=== PATIENT | female | born 1990 | race Caucasian/White ===

== ENCOUNTER 2021-04-12 15:30 | Inpatient (IN) ==
[2021-04-12 17:21] LABS: Basophils # 0.1 10*3/uL (0.0-0.2); Basophils % 0.2 % (0.0-0.8); Eosinophils # 0.1 10*3/uL (0.0-0.87); Eosinophils % 0.2 % (0.00-10.9); Hematocrit 36.3 VOL% (35.7-47.0); Immature Granulocytes % 2.4 %; Immature Granulocytes Absolute 0.72 #; Lymphocytes % 3.4 % (21.3-54.2); Mean Corpuscular HGB Conc 33.1 GM/DL (32-36); Mean Corpuscular Volume 87.7 FL (87-102); Mean Platelet Volume 9.7 FL (9.6-12.0); Monocytes % 4.6 % (1.7-12.7); Neutrophils % 89.2 % (38.7-73.9); Platelet Count 574 T/CUMM (130-400); Red Blood Count 4.14 MC/CUMM (3.8-5.5); Red Cell Distribution Width 13.9 % (9.3-17.3); White Blood Count 30.4 T/CUMM (4-12)
[2021-04-12 18:00] LABS: Alanine Aminotransferase 41 U/L (13-56); Albumin 2.9 G/DL (3.4-5.0); Alkaline Phosphatase 88 U/L (45-117); Aspartate Amino Transferase 38 U/L (0-37); Bilirubin,Total < 0.39 MG/DL (0.20-1.00); Blood Urea Nitrogen 50 MG/DL (7-18); Calcium 9.5 MG/DL (8.5-10.1); Carbon Dioxide 27 MMOL/L (21-32); Estimated Glom Filtration Rate 24 ML/MIN; Glucose 121 MG/DL (74-106); Osmolality,Calculated 279.4 MOS/KG (273-304); Sodium 133 MMOL/L (136-145); Total Protein 9.4 G/DL (6.4-8.2)
[2021-04-12] MEDS ORDERED: SODIUM CHLORIDE 0.9% 1,000 ML IV STA (18:19)
[2021-04-12] MEDS ORDERED: ERTAPENEM 1,000 MG in SODIUM CHLORIDE 0.9% 100 ML IV ONE (18:20)
[2021-04-12 18:44] LABS: Lymphocytes 2 % (20-55); Segmented Neutrophils 94 % (50-85); Total Cells Counted 100
[2021-04-12 18:45] LABS: Platelet Estimate Increased; Spherocytes 1+
[2021-04-12] MEDS ORDERED: GLUCAGON 1 MG VIAL IM PRN (20:53)
[2021-04-12] MEDS ORDERED: DEXTROSE 50% 25 GM/50 ML VIAL IV PRN (20:53)
[2021-04-12] MEDS ORDERED: MORPHINE 2 MG/1 ML SYRINGE IV PRN (20:55)
[2021-04-12] MEDS ORDERED: MAGNESIUM SULF RIDER 4 GM/100 ML PREMIX IV PRN (20:55)
[2021-04-12] MEDS ORDERED: POTASSIUM CHLORIDE RIDER 10 MEQ/100 ML PREMIX IV PRN (20:55)
[2021-04-12] MEDS ORDERED: MAGNESIUM SULF RIDER 2 GM/50 ML PREMIX IV PRN (20:55)
[2021-04-12] MEDS ORDERED: methylPREDNISolone SOD SUC 40 MG/1 ML VIAL IV SCH (21:30)
[2021-04-12] MEDS: SODIUM CHLORIDE 0.9% 1,000 ML IV SCH (22:52)
[2021-04-12] MEDS: guaiFENesin/DM ER 600-30 MG TABLET PO SCH (23:20)
[2021-04-12] MEDS: ENOXAPARIN 30 MG/0.3 ML SYRINGE SUBCUT SCH (23:20)
[2021-04-12] MEDS: ONDANSETRON 4 MG/2 ML VIAL IV PRN (23:24)
[2021-04-12] MEDS: CEFEPIME 1,000 MG in SODIUM CHLORIDE 0.9% 100 ML IV SCH (23:32)
[2021-04-13] MEDS ORDERED: VANCOMYCIN INJ 1,500 MG in SODIUM CHLORIDE 0.9% 500 ML IV PRN (00:18)
[2021-04-13] MEDS: ALBUTEROL/IPRATROPIUM 3 ML NEB RESP TX SCH ×4 (00:22→20:46)
[2021-04-13] MEDS ORDERED: VANCOMYCIN INJ 2,500 MG in SODIUM CHLORIDE 0.9% 500 ML IV ONE (00:30)
[2021-04-13] MEDS ORDERED: VANCOMYCIN INJ 500 MG in SODIUM CHLORIDE 0.9% 100 ML IV SCH (00:30)
[2021-04-13] MEDS: HYDROmorphone 2 MG/1 ML VIAL IV PRN ×3 (01:26→10:54)
[2021-04-13 04:23] LABS: Bacteria,Urine Occasional /HPF (Few); Bilirubin,Urine Negative (Negative); Blood, Urine Negative (Negative); Glucose,Urine (UA) Negative (Negative); Ketones,Urine 5 mg/dL (Negative); Mucus,Urine Occasional /LPF (Occasional); Nitrite,Urine Negative (Negative); Protein,Urine Negative; RBC,Urine 1 /HPF (0-4); Squamous Epithelial Cell,Urine Occasional /HPF (0-10); Urine Appearance CLEAR (Clear); Urine Color Straw (Yellow); Urine Specific Gravity 1.009 (1.001-1.035); Urine Urobilinogen < 2.0 EU/DL (0.2-1.0)
[2021-04-13 04:25] LABS: Basophils % 0.2 % (0.0-0.8); Hematocrit 34.7 VOL% (35.7-47.0); Hemoglobin 11.5 GM/DL (12.0-16.0); Immature Granulocytes % 1.9 %; Immature Granulocytes Absolute 0.42 #; Lymphocytes # 0.9 10*3/uL (1.4-4.0); Lymphocytes % 3.9 % (21.3-54.2); Mean Corpuscular HGB Conc 33.1 GM/DL (32-36); Mean Corpuscular Volume 88.1 FL (87-102); Monocytes % 3.9 % (1.7-12.7); Neutrophils % 90.1 % (38.7-73.9); Platelet Count 502 T/CUMM (130-400); Red Blood Count 3.94 MC/CUMM (3.8-5.5); Red Cell Distribution Width 13.9 % (9.3-17.3); White Blood Count 21.7 T/CUMM (4-12)
[2021-04-13 04:51] LABS: Osmolality,Calculated 279.2 MOS/KG (273-304); Potassium 3.5 MMOL/L (3.5-5.1); Thyroid Stimulating Hormone 0.396 uIU/ml (0.358-3.74)
[2021-04-13 05:19] LABS: Band Neutrophils 1 % (0-10); Lymphocytes 5 % (20-55); Platelet Estimate Increased; Segmented Neutrophils 88 % (50-85); Total Cells Counted 100
[2021-04-13] MEDS ORDERED: diphenhydrAMINE CAP 25 MG CAPSULE PO PRN (06:52)
[2021-04-13] MEDS: SODIUM CHLORIDE 0.9% 1,000 ML IV SCH ×4 (07:15→22:00)
[2021-04-13] MEDS: PANTOPRAZOLE 40 MG TABLET PO SCH (09:23)
[2021-04-13] MEDS: guaiFENesin/DM ER 600-30 MG TABLET PO SCH ×2 (09:23→20:22)
[2021-04-13] MEDS: CEFEPIME 1,000 MG in SODIUM CHLORIDE 0.9% 100 ML IV SCH ×2 (11:40→22:34)
[2021-04-13] MEDS: ONDANSETRON 4 MG/2 ML VIAL IV PRN ×2 (12:50→19:47)
[2021-04-13] MEDS ORDERED: PROMETHAZINE 25 MG/1 ML VIAL IM ONE (13:52)
[2021-04-13] MEDS ORDERED: SODIUM CHLORIDE 0.9% 1,000 ML IV ONE (13:52)
[2021-04-13] MEDS ORDERED: PHENOL 1.4% THROAT SPRAY 177 ML BOTTLE PO PRN (17:41)
[2021-04-13] MEDS ORDERED: PROMETHAZINE 25 MG/1 ML VIAL IM PRN (17:42)
[2021-04-13] MEDS ORDERED: LORazepam 2 MG/1 ML VIAL IV PRN (17:42)
[2021-04-13] MEDS ORDERED: BENZOCAINE/MENTHOL LOZENGE 18/BOX PO PRN (17:43)
[2021-04-13] MEDS ORDERED: HydrOXYzine PAMOATE 25 MG CAPSULE PO PRN (17:44)
[2021-04-13] MEDS ORDERED: BENZONATATE 100 MG CAPSULE PO SCH ×2 (18:00→21:00)
[2021-04-13] MEDS: ENOXAPARIN 30 MG/0.3 ML SYRINGE SUBCUT SCH (20:22)
[2021-04-13] MEDS ORDERED: ACETAMINOPHEN 325 MG TABLET PO PRN (22:11)
[2021-04-13] MEDS ORDERED: ALBUTEROL 2.5 MG/3 ML NEB RESP TX PRN (22:21)
[2021-04-13] MEDS: METOPROLOL SUCCINATE XL 25 MG TABLET PO SCH (22:29)
[2021-04-13] MEDS: DULoxetine 30 MG CAPSULE PO SCH (22:29)
[2021-04-13] MEDS: BENZONATATE 100 MG CAPSULE PO SCH (22:29)
[2021-04-14] MEDS: HYDROmorphone 2 MG/1 ML VIAL IV PRN ×2 (00:03→05:51)
[2021-04-14] MEDS: ALBUTEROL/IPRATROPIUM 3 ML NEB RESP TX SCH ×4 (01:38→20:22)
[2021-04-14] MEDS: ONDANSETRON 4 MG/2 ML VIAL IV PRN (04:15)
[2021-04-14] MEDS: VANCOMYCIN INJ 1,500 MG in SODIUM CHLORIDE 0.9% 500 ML IV SCH ×2 (05:32→23:19)
[2021-04-14 08:04] LABS: Basophils % 0.2 % (0.0-0.8); Eosinophils % 0.2 % (0.00-10.9); Hematocrit 33.7 VOL% (35.7-47.0); Hemoglobin 10.7 GM/DL (12.0-16.0); Immature Granulocytes % 2.1 %; Immature Granulocytes Absolute 0.35 #; Lymphocytes # 1.8 10*3/uL (1.4-4.0); Lymphocytes % 10.9 % (21.3-54.2); Mean Corpuscular HGB Conc 31.8 GM/DL (32-36); Mean Corpuscular Volume 89.4 FL (87-102); Mean Platelet Volume 9.6 FL (9.6-12.0); Monocytes % 7.7 % (1.7-12.7); Neutrophils % 78.9 % (38.7-73.9); Platelet Count 483 T/CUMM (130-400); Red Blood Count 3.77 MC/CUMM (3.8-5.5); Red Cell Distribution Width 14.1 % (9.3-17.3); White Blood Count 16.6 T/CUMM (4-12)
[2021-04-14 08:30] LABS: Osmolality,Calculated 274.7 MOS/KG (273-304)
[2021-04-14] MEDS: LOSARTAN/HCTZ 50-12.5 MG TABLET PO SCH (08:46)
[2021-04-14] MEDS: BENZONATATE 100 MG CAPSULE PO SCH ×3 (08:46→20:24)
[2021-04-14] MEDS: PANTOPRAZOLE 40 MG TABLET PO SCH (08:47)
[2021-04-14] MEDS: guaiFENesin/DM ER 600-30 MG TABLET PO SCH ×2 (08:47→20:24)
[2021-04-14] MEDS: SODIUM CHLORIDE 0.9% 1,000 ML IV SCH ×2 (09:15→14:05)
[2021-04-14] MEDS: CEFEPIME 1,000 MG in SODIUM CHLORIDE 0.9% 100 ML IV SCH ×2 (11:54→22:08)
[2021-04-14] MEDS: ENOXAPARIN 30 MG/0.3 ML SYRINGE SUBCUT SCH (20:23)
[2021-04-14] MEDS: DULoxetine 30 MG CAPSULE PO SCH (20:24)
[2021-04-14] MEDS: METOPROLOL SUCCINATE XL 25 MG TABLET PO SCH (20:24)
[2021-04-15] MEDS: ALBUTEROL/IPRATROPIUM 3 ML NEB RESP TX SCH ×4 (01:13→18:53)
[2021-04-15] MEDS: HYDROmorphone 2 MG/1 ML VIAL IV PRN ×5 (01:50→21:51)
[2021-04-15] MEDS: SODIUM CHLORIDE 0.9% 1,000 ML IV SCH ×3 (03:20→14:20)
[2021-04-15 05:08] LABS: Basophils # 0.1 10*3/uL (0.0-0.2); Basophils % 0.6 % (0.0-0.8); Eosinophils # 0.2 10*3/uL (0.0-0.87); Eosinophils % 2.2 % (0.00-10.9); Hematocrit 33.8 VOL% (35.7-47.0); Hemoglobin 10.8 GM/DL (12.0-16.0); Immature Granulocytes % 3.7 %; Immature Granulocytes Absolute 0.39 #; Lymphocytes # 1.5 10*3/uL (1.4-4.0); Lymphocytes % 14.5 % (21.3-54.2); Mean Corpuscular Volume 89.9 FL (87-102); Mean Platelet Volume 9.2 FL (9.6-12.0); Monocytes % 8.1 % (1.7-12.7); Neutrophils % 70.9 % (38.7-73.9); Platelet Count 404 T/CUMM (130-400); Red Blood Count 3.76 MC/CUMM (3.8-5.5); Red Cell Distribution Width 14.1 % (9.3-17.3); White Blood Count 10.6 T/CUMM (4-12)
[2021-04-15 05:40] LABS: Calcium 8.9 MG/DL (8.5-10.1); Osmolality,Calculated 274.5 MOS/KG (273-304); Potassium 3.1 MMOL/L (3.5-5.1)
[2021-04-15] MEDS: LOSARTAN/HCTZ 50-12.5 MG TABLET PO SCH (09:06)
[2021-04-15] MEDS: BENZONATATE 100 MG CAPSULE PO SCH ×3 (09:07→21:42)
[2021-04-15] MEDS: POTASSIUM CHLORIDE 20 MEQ TABLET PO SCH (09:07)
[2021-04-15] MEDS: guaiFENesin/DM ER 600-30 MG TABLET PO SCH ×2 (09:07→21:41)
[2021-04-15] MEDS: PANTOPRAZOLE 40 MG TABLET PO SCH (09:07)
[2021-04-15] MEDS: CEFEPIME 1,000 MG in SODIUM CHLORIDE 0.9% 100 ML IV SCH (10:37)
[2021-04-15] MEDS: valACYclovir 500 MG TABLET PO SCH ×2 (10:54→21:41)
[2021-04-15] MEDS: VANCOMYCIN INJ 1,500 MG in SODIUM CHLORIDE 0.9% 500 ML IV SCH (16:57)
[2021-04-15] MEDS: ENOXAPARIN 30 MG/0.3 ML SYRINGE SUBCUT SCH (21:41)
[2021-04-15] MEDS: DULoxetine 30 MG CAPSULE PO SCH (21:41)
[2021-04-15] MEDS: METOPROLOL SUCCINATE XL 25 MG TABLET PO SCH (21:41)
[2021-04-16] MEDS: CEFEPIME 1,000 MG in SODIUM CHLORIDE 0.9% 100 ML IV SCH ×4 (00:02→21:12)
[2021-04-16] MEDS: SODIUM CHLORIDE 0.9% 1,000 ML IV SCH ×4 (00:02→23:44)
[2021-04-16] MEDS: ALBUTEROL/IPRATROPIUM 3 ML NEB RESP TX SCH ×4 (01:35→19:37)
[2021-04-16] MEDS: VANCOMYCIN INJ 1,500 MG in SODIUM CHLORIDE 0.9% 500 ML IV SCH ×2 (04:45→16:11)
[2021-04-16 07:01] LABS: Basophils # 0.1 10*3/uL (0.0-0.2); Basophils % 0.5 % (0.0-0.8); Eosinophils # 0.2 10*3/uL (0.0-0.87); Hematocrit 36.7 VOL% (35.7-47.0); Hemoglobin 11.4 GM/DL (12.0-16.0); Immature Granulocytes % 5.4 %; Immature Granulocytes Absolute 0.64 #; Lymphocytes # 1.7 10*3/uL (1.4-4.0); Lymphocytes % 14.2 % (21.3-54.2); Mean Corpuscular HGB Conc 31.1 GM/DL (32-36); Mean Corpuscular Volume 89.3 FL (87-102); Mean Platelet Volume 9.4 FL (9.6-12.0); Monocytes % 8.3 % (1.7-12.7); Neutrophils % 69.6 % (38.7-73.9); Platelet Count 483 T/CUMM (130-400); Red Blood Count 4.11 MC/CUMM (3.8-5.5); Red Cell Distribution Width 13.9 % (9.3-17.3); White Blood Count 11.8 T/CUMM (4-12)
[2021-04-16 07:27] LABS: Band Neutrophils 1 % (0-10); Eosinophils 2 % (0-10); Hypochromasia 1+; Lymphocytes 16 % (20-55); Microcytosis 1+; Myelocytes 1 %; Platelet Estimate Adequate; Segmented Neutrophils 70 % (50-85); Total Cells Counted 100
[2021-04-16] MEDS: HYDROmorphone 2 MG/1 ML VIAL IV PRN ×3 (07:28→21:26)
[2021-04-16] MEDS: POTASSIUM CHLORIDE 20 MEQ TABLET PO SCH (09:21)
[2021-04-16] MEDS: guaiFENesin/DM ER 600-30 MG TABLET PO SCH ×2 (09:21→21:13)
[2021-04-16] MEDS: PANTOPRAZOLE 40 MG TABLET PO SCH (09:22)
[2021-04-16] MEDS: LOSARTAN/HCTZ 50-12.5 MG TABLET PO SCH (09:22)
[2021-04-16] MEDS: BENZONATATE 100 MG CAPSULE PO SCH ×3 (09:22→21:13)
[2021-04-16] MEDS: METOPROLOL SUCCINATE XL 25 MG TABLET PO SCH ×2 (10:25→21:13)
[2021-04-16 10:54] LABS: Osmolality,Calculated 273.8 MOS/KG (273-304); Potassium 3.6 MMOL/L (3.5-5.1)
[2021-04-16] MEDS: DULoxetine 30 MG CAPSULE PO SCH (21:13)
[2021-04-16] MEDS: ENOXAPARIN 30 MG/0.3 ML SYRINGE SUBCUT SCH (21:13)
[2021-04-17] MEDS: ALBUTEROL/IPRATROPIUM 3 ML NEB RESP TX SCH ×2 (01:51→07:16)
[2021-04-17] MEDS: CEFEPIME 1,000 MG in SODIUM CHLORIDE 0.9% 100 ML IV SCH ×2 (02:40→09:03)
[2021-04-17] MEDS: VANCOMYCIN INJ 1,500 MG in SODIUM CHLORIDE 0.9% 500 ML IV SCH (04:29)
[2021-04-17 07:23] LABS: Calcium 8.6 MG/DL (8.5-10.1); Osmolality,Calculated 274.5 MOS/KG (273-304); Potassium 3.6 MMOL/L (3.5-5.1)
[2021-04-17 07:33] VITALS: BP 153/81
[2021-04-17] MEDS: POTASSIUM CHLORIDE 20 MEQ TABLET PO SCH (09:02)
[2021-04-17] MEDS: PANTOPRAZOLE 40 MG TABLET PO SCH (09:02)
[2021-04-17] MEDS: LOSARTAN/HCTZ 50-12.5 MG TABLET PO SCH (09:02)
[2021-04-17] MEDS: METOPROLOL SUCCINATE XL 25 MG TABLET PO SCH (09:02)
[2021-04-17] MEDS: BENZONATATE 100 MG CAPSULE PO SCH (09:02)
[2021-04-17] MEDS: guaiFENesin/DM ER 600-30 MG TABLET PO SCH (09:02)
[2021-04-17] MEDS: SODIUM CHLORIDE 0.9% 1,000 ML IV SCH (09:06)
== END 2021-04-17 10:51 | disposition home or self-care (01) | DRG 137 ==
LOC: N.ED 15:30 → SUATTDRO 20:13 → N.EDINP 20:13 → N.TELEN 21:28
PROVIDERS: ADMIT Internal Medicine; ATTEND Internal Medicine